=== PATIENT | male | born 1950 | race Two or more races ===

== ENCOUNTER 2018-07-20 09:37 | Day surgery (SDC) | payer MEDICARE, OTHER ==
[~2018-07-20] VITALS: Ht 167.6 cm; Wt 79.4 kg
[2018-07-20] VITALS (8 sets, daily range): BP systolic 116–159; BP diastolic 71–79
[~2018-07-20 09:37] MED LIST: Akten 3.5% 1ml Btl BOTH EYES ONE; Maxitrol Opth Oint 3.5gm BOTH EYES ONE
--- NOTE | 2018-07-20 09:48 | Pre-Procedure Note/Attestation ---
Pre-Procedure Note/Attestation Complete Prior to Procedure Planned Procedure: bilateral Procedure Narrative: Bilateral upper eyelid blepharoplasty Indications for Procedure Pre-Operative Diagnosis: Significant upper lid dermatochalasis, with superior visual field defect Attestation I attest that I discussed the nature of the procedure; its benefits; risks and complications; and alternatives (and the risks and benefits of such alternatives ), prior to the procedure, with the patient (or the patient's legal guest relations representative). I attest that, if there was a reasonable possibility of needing a blood transfusion, the patient (or the patient's legal guest relations representative) was given the [facility] standardized written summary, pursuant to the Agu[place] Blood Safety Act ([place] Health and Safety Code # 1645, as amended). I attest that I re-evaluated the patient just prior to the surgery and that there has been no change in the patient's H&P, except as documented below: Cade Wild M.D. Jul 20, 2018 09:48
--- NOTE | 2018-07-20 10:19 | Anethesia Preoperative Eval ---
Anesthesia Pre-op PMH/ROS General Date of Evaluation: Jul 20, 2018 Mallampati Score Class I : Soft palate, uvula, fauces, pillars visible Class II: Soft palate, uvula, fauces visible Class III: Soft palate, base of uvula visible Class IV: Only hard plate visible Allergies: Coded Allergies: No Known Allergies (Unverified , 07/19/18) Tsering Philip MD Jul 20, 2018 10:19
[2018-07-20] MEDS ORDERED: LR 1000ml 1,000 ML IVLG SCH ×2 (10:20→12:18)
[2018-07-20] MEDS ORDERED: DiphenhydrAMINE 50mg/ml Inj IVP PRN ×2 (10:30→12:30)
[2018-07-20] MEDS ORDERED: Akten 3.5% 1ml Btl ONE (10:35)
[2018-07-20] MEDS ORDERED: Lidocaine 2% 20mg/ml/Epi 0.005mg/ml 20ml vial ONE (10:44)
[2018-07-20] MEDS ORDERED: BSS 15ml BTL ONE (10:44)
[2018-07-20] MEDS ORDERED: Bupivacaine 0.75% 30ml vial INJ ONE (10:44)
[2018-07-20] MEDS ORDERED: Maxitrol Opth Oint 3.5gm ONE (10:44)
[2018-07-20] MEDS ORDERED: Povidone-Iodine 5% opth solution ONE (10:44)
[2018-07-20 10:52] LABS: BASOPHILS % (AUTO) 0.7 % (0.0-2.0); EOSINOPHILS % (AUTO) 2.1 % (0.0-3.0); HEMOGLOBIN 14.6 G/DL (14.2-18.0); LYMPHOCYTES % (AUTO) 32.9 % (20.0-45.0); MEAN CORPUSCULAR VOLUME 89 FL (80-99); NEUTROPHILS % (AUTO) 56.2 % (45.0-75.0); PLATELET COUNT 183 K/UL (150-450); RED BLOOD COUNT 4.82 M/UL (4.70-6.10); RED CELL DISTRIBUTION WIDTH 10.6 % (11.6-14.8); WHITE BLOOD COUNT 6.1 K/UL (4.8-10.8)
[2018-07-20] MEDS ORDERED: fentaNYL 100 mcg/2 mL IV ONE ×2 (10:52→11:28)
[2018-07-20] MEDS ORDERED: Midazolam 2mg/2ml Inj ONE ×2 (10:52→11:28)
[2018-07-20 10:55] LABS: ANION GAP 9 mmol/L (5-15); BLOOD UREA NITROGEN 19 mg/dL (7-18); CALCIUM 9.1 MG/DL (8.5-10.1); CARBON DIOXIDE 26 MMOL/L (21-32); CHLORIDE 107 MMOL/L (98-107); CREATININE 1.1 MG/DL (0.55-1.30); POTASSIUM 4.1 MMOL/L (3.5-5.1); SODIUM 142 MMOL/L (136-145)
[2018-07-20] MEDS ORDERED: LIPITOR40 MG ORAL (11:02)
[2018-07-20] MEDS ORDERED: METFORMIN HCL500 M1 ORAL (11:02)
[2018-07-20 11:03] LABS: INR 1.1 (0.9-1.1)
[2018-07-20] MEDS ORDERED: OZEMPIC SUBQ (11:10)
[2018-07-20] MEDS ORDERED: LR 1000ml ONE (11:45)
[2018-07-20] MEDS ORDERED: Sterile Water Irrig 1000ml IRRIG ONE (12:10)
[2018-07-20] MEDS ORDERED: BSS 15ml BTL BOTH EYES ONE (12:10)
[2018-07-20] MEDS ORDERED: Lidocaine 2% 20mg/ml/EPI 0.01mg/ml 20ml INJ ONE (12:10)
[2018-07-20] MEDS ORDERED: Bupivacaine w/Epi 0.75% 30ml Vial INJ ONE (12:10)
--- NOTE | 2018-07-20 12:18 | Anethesia Preoperative Eval ---
Anesthesia Pre-op PMH/ROS General Date of Evaluation: Jul 20, 2018 Time of Evaluation: 11:40 Anesthesiologist: Jelani ASA Score: ASA 2 Mallampati Score Class I : Soft palate, uvula, fauces, pillars visible Class II: Soft palate, uvula, fauces visible Class III: Soft palate, base of uvula visible Class IV: Only hard plate visible Mallampati Classification: Class II Surgeon: Charohtmarietta Diagnosis: Blepharoptosis Surgical Procedure: Bilateral blepharoplasty Anesthesia History: none Family History: no anesthesia problems Allergies: Coded Allergies: No Known Allergies (Unverified , 07/19/18) Medications: see eMAR Patient NPO?: Yes Past Medical History Cardiovascular: Reports: HTN - borderline; Denies: CAD, TX, valve dz, arrhythmia, other Pulmonary: Denies: asthma, COPD, LARA, other Gastrointestinal/Genitourinary: Reports: GERD, other - kidney stones Neurologic/Psychiatric: Denies: dementia, CVA, depression/anxiety, TIA, other Endocrine: Reports: DM - borderline; Denies: hypothyroidism, steroids, other HEENT: Denies: cataract (L), cataract (R), glaucoma, ALEKNAGIK (L), ALEKNAGIK (R), other Hematology/Immune: Denies: anemia, DVT, bleeding disorder, other Musculoskeletal/Integumentary: Denies: OA, RA, DJD, DDD, edema, other PMH Narrative: as above PSxH Narrative: kidney stones Anesthesia Pre-op Phys. Exam Physician Exam Last Vital Signs Date Time Temp Pulse Resp B/P (MAP) Pulse Ox O2 Delivery O2 Flow Rate FiO2 07/20/18 10:50 Room Air 07/20/18 10:30 97.3 57 20 159/78 98 Constitutional: NAD Neurologic: CN 2-12 intact Cardiovascular: RRR, no M/R/G Respiratory: CTA Gastrointestinal: S/NT/ND Airway Exam Mallampati Score: Class II MO: full Neck: stiff ROM: limited Teeth: intact Dentures: no upper, no lower Anesthesia Pre-op A/P Labs Hematology Test 07/20/18 10:25 White Blood Count 6.1 K/UL (4.8-10.8) Red Blood Count 4.82 M/UL (4.70-6.10) Hemoglobin 14.6 G/DL (14.2-18.0) Hematocrit 43.0 % (42.0-52.0) Mean Corpuscular Volume 89 FL (80-99) Mean Corpuscular Hemoglobin 30.4 PG (27.0-31.0) Mean Corpuscular Hemoglobin Concent 34.1 G/DL (32.0-36.0) Red Cell Distribution Width 10.6 % (11.6-14.8) L Platelet Count 183 K/UL (150-450) Mean Platelet Volume 7.9 FL (6.5-10.1) Neutrophils (%) (Auto) 56.2 % (45.0-75.0) Lymphocytes (%) (Auto) 32.9 % (20.0-45.0) Monocytes (%) (Auto) 8.0 % (1.0-10.0) Eosinophils (%) (Auto) 2.1 % (0.0-3.0) Basophils (%) (Auto) 0.7 % (0.0-2.0) Coagulation Test 07/20/18 10:25 Prothrombin Time 11.3 SEC (9.30-11.50) Prothromb Time International Ratio 1.1 (0.9-1.1) Activated Partial Thromboplast Time 27 SEC (23-33) Chemistry Test 07/20/18 10:25 Sodium Level 142 MMOL/L (136-145) Potassium Level 4.1 MMOL/L (3.5-5.1) Chloride Level 107 MMOL/L (98-107) Carbon Dioxide Level 26 MMOL/L (21-32) Anion Gap 9 mmol/L (5-15) Blood Urea Nitrogen 19 mg/dL (7-18) H Creatinine 1.1 MG/DL (0.55-1.30) Estimat Glomerular Filtration Rate > 60 mL/min (>60) Glucose Level 98 MG/DL (74-106) Calcium Level 9.1 MG/DL (8.5-10.1) Studies Pre-op Studies: EKG - NSR Risk Assessment & Plan Assessment: ASA 2 Plan: MAC Status Change Before Surgery: No Pre-Antibiotics Drug: none Vic Palomares MD Jul 20, 2018 12:18
[2018-07-20] MEDS ORDERED: fentaNYL 100 mcg/2 mL IV PRN (12:30)
[2018-07-20] MEDS ORDERED: Propofol 200mg/20ml IV ONE (13:01)
--- NOTE | 2018-07-20 13:06 | Discharge Instructions ---
Discharge Instructions Discharge Instructions Resume Normal Activity?: Yes For Surgical Patients Dressing Care: keep dry and clean - Please use MAxitrol eye ointemnet two times a day staarting tomorrow, cotinue ccol compress today. For Congestive Heart Failure Reminder Report to your physician any weight gain of 5 pounds or more in one week. Cade Wild M.D. Jul 20, 2018 13:06
--- NOTE | 2018-07-20 13:07 | Brief Operative Note ---
Immediate Post Operative Note Operative Note Pre-op Diagnosis: Significant upper lid dermatochalasis, with superior visual field defect Post-op Diagnosis: same as pre-op Specimen: none Complications: none Condition: stable Fluids: 200 ml Estimated Blood Loss: minimal Drains: none Implant(s) used?: Cade Tuttle M.D. Jul 20, 2018 13:07
[2018-07-20] MEDS ORDERED: Maxitrol Opth Oint 3.5gm BOTH EYES ONE (13:08)
--- NOTE | 2018-07-20 13:08 | Immediate Post-Op Evaluation ---
Immediate Post-Op Evalulation Immediate Post-Op Evalulation Procedure: Bilateral blepharoplasty Date of Evaluation: Jul 20, 2018 Time of Evaluation: 13:06 IV Fluids: 500 Blood Products: [id number] Estimated Blood Loss: min Urinary Output: none Blood Pressure Systolic: 130 Blood Pressure Diastolic: 73 Pulse Rate: 62 Respiratory Rate: 20 O2 Sat by Pulse Oximetry: 99 Temperature (Fahrenheit): 97.7 Pain Score (1-10): 2 Nausea: No Vomiting: No Complications none Patient Status: awake, patent, none Hydration Status: adequate Vic Palomares MD Jul 20, 2018 13:08
--- NOTE | 2018-07-20 13:50 | 48 Hour Post Anesthesia Eval ---
Post Anesthesia Evaluation Procedure: Bilateral blepharoplasty Date of Evaluation: Jul 20, 2018 Time of Evaluation: 13:49 Blood Pressure Systolic: 128 0: 74 Pulse Rate: 68 Respiratory Rate: 20 Temperature (Fahrenheit): 97.6 O2 Sat by Pulse Oximetry: 98 Airway: patent Nausea: No Vomiting: No Pain Intensity: 1 Hydration Status: adequate Cardiopulmonary Status: stable Mental Status/LOC: patient returned to baseline Follow-up Care/Observations: n/a Post-Anesthesia Complications: none Follow-up care needed: ready to discharge Vic Palomares MD Jul 20, 2018 13:50
--- NOTE | 2018-07-20 18:15 | Pre-op HX & Phy Repo 2 SIG ---
DATE OF ADMISSION: 07/20/2018 PRESURGICAL INTERNAL MEDICINE HISTORY AND PHYSICAL REASON FOR EVALUATION: I was asked by Dr. Julio C Sullivan and Dr. Wild to see this 67-year-old male who is going for elective surgery on both eyes. The patient was examined. Chart was reviewed. The patient has blepharochalasis bilateral. Please see full description by Dr. Cade Wild. The patient was seen in an Outpatient Procedure Department, [facility]. The patient is alert. Chart was reviewed. PAST MEDICAL HISTORY: Remarkable for history of myocardial infarction, chest pain, and palpitation. Denies history of stroke or seizures. The patient has history of hypertension, untreated; history of renal cysts and stones; history of GERD. No GI bleeding. History of arthritis, degenerative joint disease. History of diabetes mellitus, type 2. No hepatitis. No thyroid problem. No renal insufficiency. SURGICAL HISTORY: Renal stones removal. FAMILY HISTORY: Mother alive at age of 91 and father probably from heart attack. ALLERGIES: Not known. PRESENT MEDICATIONS: Include metformin 500 mg daily, inject once a week, Nexium 40 mg daily, , baby aspirin, do not take for 10 days, vitamin D, Slow-Mag, multivitamins. HABITS: Denies tobacco or alcohol use. PHYSICAL EXAMINATION: VITAL SIGNS: Blood pressure 159/78, temperature 97.3, pulse 60 and regular, and O2 saturation 98% on room air. GENERAL: Alert, well-developed, well-nourished male in his 60s. HEAD: Normocephalic, atraumatic. Ears, clear. No discharge. Normal hair grow. Eyes, full description per Dr. Wild. Mouth, clear and moist. No dentures. NECK: Supple. No jugular venous distention. Carotids artery +2. Trachea midline. CHEST: No deformity or asymmetry. LUNGS: Clear to auscultation and percussion. No rales or rhonchi. HEART: Sinus rhythm at 60. No murmur. No S3, S4. ABDOMEN: Soft, benign. Liver and spleen not enlarged. No rebound. EXTREMITIES: Degenerative joint disease in his knee. No edema. No varicose vein. No calf tenderness. GENITOURINARY TRACT: Denies dysuria. History of renal cysts and stones. CVA nontender. NEUROLOGIC: No asymmetry. No tremor. No nystagmus. DIAGNOSTIC DATA: Electrocardiogram, sinus bradycardia 56 per minute, otherwise normal ECG. The patient's last p.o. intake 7 p.m. yesterday. Fast blood sugar 87 mg/dL. The rest of the laboratory pending. IMPRESSION: 1. Blepharochalasis. 2. Diabetes mellitus type 2, controlled. 3. GERD. 4. Hypertension, untreated. 5. Degenerative joint disease, knee. 6. Sinus bradycardia by EKG. 7. Renal cysts and renal stones. PLAN: Bilateral upper blepharoplasty per Dr. Wild. CONCLUSION: The patient's vital signs stable. Systolic blood pressure is slightly elevated. The patient is not on any treatment. ECG shows sinus bradycardia, otherwise normal ECG. Blood sugar controlled. The patient did not eat or drink from yesterday 7 p.m. The patient's condition optimized for surgery. Thank you very much, Dr. Wild, for the privilege to participate in presurgical care of this interesting patient. Daquan Link M.D. DR: ALIRIO JOB#: [id number] CC:
--- NOTE | 2018-07-21 18:02 | Cardiology Report ---
APPROVED REPORT EKG Measurement Heart [id number] [place] [id number] Sinus bradycardia Otherwise normal ECG
--- NOTE | 2018-07-24 03:15 | Operative Note - Dictated ---
DATE OF OPERATION: 07/20/2018 PREOPERATIVE DIAGNOSIS: Upper eyelid dermatochalasis, visually significant with obstruction of superior visual field. POSTOPERATIVE DIAGNOSIS: Upper eyelid dermatochalasis, visually significant with obstruction of superior visual field. PROCEDURE PERFORMED: Bilateral upper eyelid blepharoplasty. SURGEON: Cade Wild M.D. BOOK COVERER: None. ANESTHESIA: Monitored anesthesia care, MAC. INDICATION FOR SURGERY: The patient is a 67-year-old gentleman with severe dermatochalasis in both eyes limiting superior visual field. He seeks eyelid surgery to fix the problem. On exam, eyes are just mildly asymmetric with MRD1 0.5 mm smaller in the left eye than the right eye with significant and severe dermatochalasis with overhanging skin over the superior eyelid and lashes. Informed consent, nature of the surgery, risks, benefits, and alternatives of upper eyelid blepharoplasty were discussed in depth with the patient. Questions were answered. Possibility of complications were discussed with the patient including but not limited to bleeding, infection, scar formation, aggravating of eyelid asymmetricity and recurrence of redundant skin, worsening of the dry eyes, change in vision, eyelid or eyeball inflammation, or losing the eye and losing the vision. Alternatives include monitoring with no surgery. The patient voiced understanding and signed the consent form. DESCRIPTION OF THE SURGERY AND FINDINGS: The patient was taken to the operating room in a stable condition and was placed on the surgical table in a face-up position. After adequate intravenous sedation by anesthesia team, a drop of proparacaine was placed in each eye for surface anesthesia. Then using a marking pen, both eyes were mapped to show the area of the skin incision. The map was included in the crease line in each eye and the amount of the skin to be removed was tested with a pinch test using and a maximum 1.5 mm of the skin in a stretched condition was mapped to be removed in both eyes. After mapping done in right first and then left eye, local anesthesia agent was injected 2 mL under the skin in each eye, OD first and then the OS. Local anesthesia solution consists of 2% lidocaine with epinephrine and 0.75 marking in a [id number] fashion. After the injection of lidocaine at both right and left superior eyelid, gentle massage was applied on the site of injection to induce enough infiltration of the numbing agent. After a few minutes, upper face was prepped and draped in standard sterile ophthalmologic fashion. Then, the protection of the surface of the eye in both eyes, surgery first started in the right eye. With a #15 surgical blade, a skin incision was planned to follow over the marked skin, first at the crease, and then on a circular upper border. After the skin incision, using a Veronika scissor the skin and subcutaneous tissue was dissected bluntly and then was removed. Bed was checked for any bleeding and using a monopolar cautery any visible bleeding was controlled. Then the same procedure was performed for the left eye. First a skin incision was done with #15 surgical blade and then the resection of the skin and subcutaneous tissue was completed using a Veronika scissor. Any visible bleeding in the left side also was cauterized with monopolar in the same fashion. After that the surgical beds for both eyelids was checked for any bleeding. There was no bleeding and a skin suturing was started. First in the right eye and then in the left eye, with 5-0 Prolene single running suture the skin incision has been closed. The patient was checked and there was no exposure at the conclusion of the surgery. Vision checked, vision has been stable. Maxitrol eye ointment was placed on the line of incision in both eyes and with a small patch both have been patched and cool compress was placed on the eye. The patient has been transferred to the PACU in stable condition. SPECIMENS: None. COMPLICATIONS: None. BLEEDING: Minimum. The patient was instructed to come back to office next day. Warning signs of pain or any visual loss with urgent calling to office and seek medical attention was emphasized. Cade Wild MD DR: CAROLYN JOB#: [id number] CC:
== END 2018-07-20 14:40 | disposition home or self-care (01) ==
LOC: SUR 09:37
DX: H02.834 Dermatochalasis of left upper eyelid (principal); H02.831 Dermatochalasis of right upper eyelid; I25.2 Old myocardial infarction; I10 Essential (primary) hypertension; N28.1 Cyst of kidney, acquired; K21.9 Gastro-esophageal reflux disease without esophagitis; M19.90 Unspecified osteoarthritis, unspecified site; E11.9 Type 2 diabetes mellitus without complications; R00.1 Bradycardia, unspecified; Z87.442 Personal history of urinary calculi; Z79.84 Long term (current) use of oral hypoglycemic drugs; Z79.82 Long term (current) use of aspirin
CPT/HCPCS: 15823; 36415; 80048; 82962; 85025; 85610; 85730; 93005; J2250; J2704; J3010; J3490; 94003; 94150